=== PATIENT | male | born 1990 | race Hispanic/Latino ===

== ENCOUNTER 2018-03-30 03:58 | Emergency (ER) | payer OTHER ==
[2018-03-30 04:30] LABS: #Basophils 0.1 thou/uL (0.0-0.2); #Eosinphils 0.3 thou/uL (0.0-0.7); #Lymphocytes 2.9 thou/uL (1.20-3.40); #Monocytes 0.5 thou/uL (0.11-0.59); #Neutrophils 5.9 thou/uL (1.40-6.50); %Basophils 0.9 % (0.0-1.0); %Eosinophils 3.4 % (0.0-10.0); %Lymphocytes 29.4 % (21.0-51.0); %Monocytes 5.5 % (0.0-10.0); %Neutrophils 60.8 % (42.0-75.0); Hemoglobin 14.5 g/dL (14.0-18.0); Mean Corpuscular HGB CONC 33.7 g/dL (32.0-36.0); Mean Corpuscular Volume 83.1 fL (78.0-98.0); Mean Platelet Volume 8.2 fL (7.4-10.4); Platelet Count 166 thou/uL (130-400); RBC Distribution Width 12.5 % (11.5-14.5); Red Blood Cell (RBC) Count 5.17 mill/uL (4.70-6.10); White Blood Cell (WBC) Count 9.8 thou/uL (4.8-10.8)
[2018-03-30 04:38] LABS: Bilirubin Negative (Negative); Blood, Urine Trace (Negative); Clarity CLEAR (Clear); Glucose, Urine (Dipstick) Negative (Negative); Leukocyte Negative (Negative); Nitrite Negative (Negative); Protein, Urine (Dipstick) Negative (Neg-Trace); Specific Gravity, Urine 1.023 (1.002-1.036); Urobilinogen 0.2 mg/dL (0.2-1.0); pH, Urine 5.5 (5.0-9.0)
[2018-03-30 04:40] LABS: Bacteria/HPF None Seen HPF (None Seen); Hyaline Casts/LPF 0-3 HYALINE CAST LPF (0-3 Hyaline); RBC/HPF 0-3 HPF (0-3); Squamous Epithelial None Seen HPF (0-3); WBC/HPF None Seen HPF (0-3)
[2018-03-30 04:43] LABS: ALT (SGPT) 18 U/L (8-55); AST (SGOT) 31 U/L (5-34); Albumin 4.8 g/dL (3.5-5.0); Alkaline Phosphatase 64 U/L (40-150); Anion Gap 14 mmol/L (10-20); BUN (Urea Nitrogen) 19 mg/dL (8.9-20.6); Bilirubin, Total 0.4 mg/dL (0.2-1.2); Calc. Creatinine Clearance 0 mL/min (70-130); Carbon Dioxide 24 mmol/L (22-29); Chloride 101 mmol/L (98-107); Estimated GFR-MDRD Greater than 90; Glucose 110 mg/dL (70-105); Lipase 37 U/L (8-78); Potassium 3.7 mmol/L (3.5-5.1); Protein, Total 7.8 g/dL (6.0-8.3); Sodium 135 mmol/L (136-145)
[2018-03-30] MEDS ORDERED: Mag-Al 1200 mg/1200 mg/30 ML UDCUP ONE (05:40)
[2018-03-30] MEDS ORDERED: Lidocaine Viscous Sol 2% 15 ml UD Cup ONE (05:40)
[2018-03-30] MEDS ORDERED: Famotidine 20 MG TAB ONE (05:40)
[2018-03-30] MEDS ORDERED: Ketorolac Tromethamine 60 MG/2 ML VIAL ONE (06:01)
--- NOTE | 2018-03-30 08:44 | RAD ---
FRONTAL RADIOGRAPH CHEST: Upright and supine frontal imaging abdomen and pelvis. DATE: 03/30/18. COMPARISON: None. HISTORY: Epigastric pain, abdominal pain, pain radiating into the back. FINDINGS: There is no pneumothorax, pleural fluid, focal consolidation, or alveolar edema. Upright imaging dem onstrates no free intraperitoneal air. The bowel gas pattern is nonobstructed. IMPRESSION: No acute findings. POS: SARAH
--- NOTE | 2018-03-30 08:49 | ULT ---
ABDOMINAL ULTRASOUND: DATE: 03/30/18. COMPARISON: None. HISTORY: Abdominal pain, pancreatitis. TECHNIQUE: Multiplanar, mackenzie scale, sonographic imaging of the abdomen provided. FINDINGS: Imaged pancreas is unremarkable. However, the majority of the pancreas is obscured by bowel gas. Im aged IVC and aorta appear within normal limits. There is no focal liver lesion or intrahepatic biliary dilatation. The common bile duct measures pepper roximately 2 mm, within normal limits. No gallbladder wall thickening or pericholecystic fluid. No gallstones are noted. The pound attendant reports a negative Glover's sign. The right kidney measures 10.1 cm in craniocaudal dimension and demonstrates no stone, hydronephrosis , or mass lesion. The spleen measures up to 9.8 cm, within normal limits. The left kidney measures 10.4 cm in craniocaudal dimension and demonstrates no stone, hydronephrosis, or mass lesion. IMPRESSION: No acute findings. The pancreas is poorly visualized on this exam. POS: ANDREW
== END 2018-03-30 08:30 | disposition home or self-care (01) ==
LOC: ERS 03:58
DX: K29.70 Gastritis, unspecified, without bleeding (principal); F41.9 Anxiety disorder, unspecified
CPT/HCPCS: 36415; 74022; 76700; 80053; 81003; 81015; 83690; 85025; 93005; 96372; J1885

== ENCOUNTER 2021-02-14 20:26 | Emergency (ER) | payer OTHER ==
[2021-02-14] MEDS ORDERED: Ketorolac Tromethamine 30 MG/ML VIAL ONE (22:43)
== END 2021-02-14 22:59 | disposition home or self-care (01) ==
LOC: ERS 20:26
DX: S16.1XXA Strain of muscle, fascia and tendon at neck level, initial encounter (principal); X58.XXXA Exposure to other specified factors, initial encounter
CPT/HCPCS: 96372; 99283; J1885